=== PATIENT | female | born 1990 | race Caucasian/White ===

== ENCOUNTER 2022-01-05 11:44 | Outpatient (CLI) | payer OTHER ==
[~2022-01-05] VITALS: Ht 147.3 cm; Wt 55.9 kg
[2022-01-05 12:03] VITALS: BP 112/71
[2022-01-05] MEDS ORDERED: LEXA5TAB13 PO (12:24)
[2022-01-05] MEDS ORDERED: HOME MED LIST COMPLETE! XX SCH (12:25)
[2022-01-05 12:28] LABS: HEMATOCRIT 29.2 % (36.0-47.0); HEMOGLOBIN 9.2 g/dl (12.0-15.5); MEAN CORPUSCULAR HEMOGLOBIN 27.1 pg (27.0-33.0); MEAN CORPUSCULAR HGB CONC 31.5 g/dl (32.0-36.5); MEAN CORPUSCULAR VOLUME 86.1 fl (80.0-96.0); PLATELET COUNT, AUTOMATED 183 10^3/uL (150-450); RED BLOOD COUNT 3.39 10^6/uL (4.00-5.40); WHITE BLOOD COUNT 10.6 10^3/uL (4.0-10.0)
[2022-01-05 14:29] VITALS: BP 111/64
[2022-01-05 16:23] VITALS: BP 105/58
[2022-01-05 18:19] VITALS: BP 106/58
== END 2022-01-05 19:00 | disposition home or self-care (01) ==
LOC: M LDO 11:44
PROVIDERS: ATTEND Registered Nurse
DX: O9A.213 Injury, poisoning and certain other consequences of external causes complicating pregnancy, third trimester (principal); W01.0XXA Fall on same level from slipping, tripping and stumbling without subsequent striking against object, initial encounter; R10.9 Unspecified abdominal pain; Y92.9 Unspecified place or not applicable; Y93.9 Activity, unspecified; Y99.9 Unspecified external cause status; Z3A.35 35 weeks gestation of pregnancy
CPT/HCPCS: 36415; 59025; 76815; 76819; 76820; 85027; 85460; 86850; 86900; 86901; G0378; G0463

== ENCOUNTER 2022-01-07 10:34 | Inpatient (IN) | payer OTHER ==
[2022-01-07] VITALS (18 sets, daily range): BP systolic 93–114; BP diastolic 54–71
[~2022-01-07] VITALS: Ht 147.3 cm; Wt 55.9 kg
[~2022-01-07 10:34] MED LIST: LEXA5TAB13 PO
[2022-01-07] MEDS ORDERED: TRANEXAMIC ACID INJection 1,000 MG in NS 100 ML IV PRN ×2 (11:10→14:25)
[2022-01-07] MEDS ORDERED: OXYTOCIN INJ 10 UNITS/ML VIAL (J2590) IV PRN ×2 (11:10→14:25)
[2022-01-07] MEDS ORDERED: LACTATED RINGER'S 1000 ML IV ONE (11:10)
[2022-01-07] MEDS ORDERED: LR 1,000 ML IV SCH ×2 (11:10→16:15)
[2022-01-07] MEDS ORDERED: METHYLERGONOVINE MALEATE 0.2 MG/ML VIAL (J2210) IM PRN ×3 (11:10→16:15)
[2022-01-07] MEDS ORDERED: OXYTOCIN DRIP 30 UNITS in IV 1 EA IV SCH ×3 (11:10→23:45)
[2022-01-07] MEDS ORDERED: OXYTOCIN DRIP 30 UNITS in IV 1 EA IV PRN ×8 (11:10→14:25)
[2022-01-07] MEDS: LR 1,000 ML IV SCH ×2 (12:46→22:15)
[2022-01-07 12:51] LABS: MEAN CORPUSCULAR HEMOGLOBIN 27.2 pg (27.0-33.0); MEAN CORPUSCULAR HGB CONC 31.3 g/dl (32.0-36.5); MEAN CORPUSCULAR VOLUME 87.2 fl (80.0-96.0); PLATELET COUNT, AUTOMATED 185 10^3/uL (150-450); RED BLOOD COUNT 3.67 10^6/uL (4.00-5.40); WHITE BLOOD COUNT 12.2 10^3/uL (4.0-10.0)
[2022-01-07] MEDS ORDERED: ceFAZolin 2 GM/D5W 50 ML IV BAG (J0690 PER 500MG) As Ordered ONE (14:17)
[2022-01-07] MEDS ORDERED: AZITHROMYCIN INJ 500MG VIAL As Ordered ONE (14:18)
[2022-01-07] MEDS ORDERED: BICITRA 30ML SOLN UDC As Ordered ONE (14:18)
[2022-01-07] MEDS ORDERED: BICITRA 30ML SOLN UDC PO ONE (14:25)
[2022-01-07] MEDS ORDERED: ACETAMINOPHEN 650 MG SUPP PR ONE (14:25)
[2022-01-07] MEDS ORDERED: AZITHROMYCIN INJ 500 MG, VIAL MATE ADAPTER 1 EACH in NS 250 ML IV ONE (14:25)
[2022-01-07] MEDS ORDERED: ceFAZolin SOD 2 GM in IV 1 EA IV ONE (14:25)
[2022-01-07] MEDS ORDERED: BUPIVACAINE HCL 0.25% 10ML VIAL SC ONE (14:30)
[2022-01-07] MEDS ORDERED: MORPHINE PRES-FREE INJ 10 MG/10 ML VIAL As Ordered ONE (14:47)
[2022-01-07] MEDS ORDERED: ePHEDrine SULFATE 25 MG/5 ML(5MG/ML) SYRINGE As Ordered ONE (14:48)
[2022-01-07] MEDS ORDERED: OXYTOCIN 30 UNITS IN 0.9% NaCl 500ML IV BAG (J2590) As Ordered ONE (14:48)
[2022-01-07] MEDS ORDERED: PHENYLephrine 500MCG 5ML (100MCG/ML) SYRINGE As Ordered ONE ×2 (14:48→15:32)
[2022-01-07] MEDS ORDERED: KETOROLAC 60MG 2ML VIAL As Ordered ONE (15:38)
[2022-01-07] MEDS ORDERED: ONDANSETRON 4MG 2ML VIAL As Ordered ONE (15:38)
[2022-01-07 15:45] LABS: CORD GAS ABE A -7.4; CORD GAS HCO3 A 19.9 MEQ/L; CORD GAS O2 SAT A 39.6 %; CORD GAS PH A 7.236 UNITS; CORD GAS SBC A 17.4 MEQ/L; CORD GAS TCO2 A 21.4 MEQ/L
[2022-01-07 15:46] LABS: CORD GAS ABE V -4.5; CORD GAS HCO3 V 20.1 MEQ/L; CORD GAS O2 SAT V 87.6 %; CORD GAS PCO2 V 35.6 mmHg; CORD GAS PH V 7.37 UNITS; CORD GAS PO2 V 43.8 mmHg; CORD GAS SBC V 20.6 MEQ/L; CORD GAS TCO2 V 21.2 MEQ/L
[2022-01-07] MEDS ORDERED: fentaNYL 100 MCG/2 ML INJECTION As Ordered ONE (15:51)
[2022-01-07] MEDS ORDERED: oxyCODONE 5MG TAB PO PRN ×2 (16:15)
[2022-01-07] MEDS ORDERED: SIMETHICONE 80MG CHEW TAB PO PRN (16:15)
[2022-01-07] MEDS ORDERED: ONDANSETRON 4MG 2ML VIAL IV PRN (16:15)
[2022-01-07] MEDS ORDERED: RHOGAM 300 MCG (1500 IU) INJ (J2790) IM SCH (16:15)
[2022-01-07] MEDS ORDERED: PROMETHAZINE 25 MG TAB PO PRN (16:15)
[2022-01-07] MEDS: ACETAMINOPHEN 500 MG TAB PO SCH ×2 (16:15→22:15)
[2022-01-07] MEDS: DOCUSATE SODIUM 100MG CAPSULE PO SCH (21:00)
[2022-01-07] MEDS: KETOROLAC 30 MG/ML 1ML VIAL IV SCH (22:16)
[2022-01-08 02:00] VITALS: BP 97/56
[2022-01-08] MEDS: KETOROLAC 30 MG/ML 1ML VIAL IV SCH ×2 (04:26→10:30)
[2022-01-08] MEDS: ACETAMINOPHEN 500 MG TAB PO SCH ×4 (04:26→22:35)
[2022-01-08 06:15] VITALS: BP 97/52
[2022-01-08 07:11] LABS: HEMATOCRIT 24.4 % (36.0-47.0); MEAN CORPUSCULAR HEMOGLOBIN 26.8 pg (27.0-33.0); MEAN CORPUSCULAR HGB CONC 30.3 g/dl (32.0-36.5); MEAN CORPUSCULAR VOLUME 88.4 fl (80.0-96.0); PLATELET COUNT, AUTOMATED 141 10^3/uL (150-450); RED BLOOD COUNT 2.76 10^6/uL (4.00-5.40); WHITE BLOOD COUNT 11.2 10^3/uL (4.0-10.0)
[2022-01-08 07:18] LABS: HEMOGLOBIN 7.4 g/dl (12.0-15.5)
[2022-01-08] MEDS: DOCUSATE SODIUM 100MG CAPSULE PO SCH ×2 (08:36→21:00)
[2022-01-08] MEDS: PRENATAL VITAMINS CHEWABLE TABLET PO SCH (08:36)
[2022-01-08] MEDS: ESCITALOPRAM OXALATE 5MG TABLET (LEXAPRO) PO SCH (08:45)
[2022-01-08 10:00] VITALS: BP 100/55
[2022-01-08 14:00] VITALS: BP 96/57
[2022-01-08] MEDS ORDERED: HOME MED LIST COMPLETE! XX SCH (15:10)
[2022-01-08] MEDS ORDERED: PRENTAB9 PO (16:38)
[2022-01-08] MEDS: IBUPROFEN 800 MG TAB PO SCH (17:42)
[2022-01-08 18:00] VITALS: BP 106/64
[2022-01-08 22:00] VITALS: BP 100/56
[2022-01-09 02:00] VITALS: BP 107/57
[2022-01-09] MEDS: IBUPROFEN 800 MG TAB PO SCH (02:17)
[2022-01-09] MEDS: ACETAMINOPHEN 500 MG TAB PO SCH (04:47)
[2022-01-09 06:00] VITALS: BP 119/76
[2022-01-09] MEDS: ESCITALOPRAM OXALATE 5MG TABLET (LEXAPRO) PO SCH (07:22)
[2022-01-09] MEDS: PRENATAL VITAMINS CHEWABLE TABLET PO SCH (07:22)
[2022-01-09] MEDS: DOCUSATE SODIUM 100MG CAPSULE PO SCH (07:22)
[2022-01-09] MEDS ORDERED: MEASLES,MUMPS,RUBELLA VACCINE INJ (MMR-II) (90707) SC.IMMUN ONE (09:00)
[2022-01-09 10:00] VITALS: BP 110/64
[2022-01-09] MEDS ORDERED: ACET-683 PO (12:10)
[2022-01-09] MEDS ORDERED: IBUP80TA PO (12:10)
[2022-01-09] MEDS ORDERED: COLA100C5 PO (12:10)
[2022-01-09] MEDS ORDERED: OXYC-517 PO (12:10)
== END 2022-01-09 13:10 | disposition home or self-care (01) | DRG 773 ==
LOC: M LDO 10:34 → M LDI 10:58 → M OBS 16:15
PROVIDERS: ADMIT Obstetrics & Gynecology; ATTEND Obstetrics & Gynecology
PROC: 10D00Z1 Extraction of Products of Conception, Low, Open Approach (ICD-10-PCS; principal; 2022-01-07 14:30)
DX: O76 Abnormality in fetal heart rate and rhythm complicating labor and delivery (principal); Z37.0 Single live birth; Z3A.37 37 weeks gestation of pregnancy